=== PATIENT | female | born 1980 | race Caucasian/White ===

== ENCOUNTER 2020-03-20 04:20 | Emergency (ER) | payer BC, SELFPAY ==
[2020-03-20 04:22] VITALS: BP 119/68; PULSE 68; RESP 20; TEMP 36.4; O2SAT 99
--- NOTE | 2020-03-20 04:30 | DI.CT_ITS ---
EXAM: CT ABDOMEN PELVIS W INDICATION: pelvic pain with diarrhea and urinary frequency. COMPARISON: No exams were available for comparison TECHNIQUE: CT examination was performed without contrast administration. FINDINGS: Images obtained through the lung bases are unremarkable. Visualized portions of the liver and splee n appear intact. Visualized portions of the pancreas are unremarkable. Gallbladder and bile ducts are CT normal. Abdominal aorta is of normal diameter. No significant abdominal wall hernia. No significant abdominal or pelvic adenopathy. Adrenals appear normal bilaterally. The kidneys are normal in size and shape. There is moderate right hydronephrosis and hydroureter to the level of the distal ureter where there is an obstructing 7 millimeter in diameter stone about 3 c m above the ureterovesical junction. No left nephrolithiasis, hydronephrosis, or ureterolithiasis. Urinary bladder is nondistended. Pedorthist structures appear intact as visualized. Appendix is normal. No evidence of diverticulitis or anne wel obstruction. IMPRESSION: Obstructing 7 millimeter in diameter calculus in the distal right ureter. No other significant findi ngs. RADIATION DOSE DELIVERED: 693.17mGy.cm DLP 693.17mGy.cm Total DLP
--- NOTE | 2020-03-20 04:34 | W.ED.GENAD ---
Discharge Plan Disposition Patient Disposition: HOME Condition: Good Discharge Details Chief Complaint: Abd Prob Clinical Impression: Kidney stone, Vomiting, Dehydration, Hypomagnesemia Primary Care Provider: Cha Lovell ED Provider: Nate Lopez Discharge Instructions Instructions: Kidney Stones (ED) Additional Instructions: At this time you have likely passed your kidney stone. This is likely the cause of your symptoms. Please stay well-hydrated, use the strainer to collect the stone. You can have this analyzed by your primary care provider. Additionally your monthly/. Related symptoms may also be related to endometriosis. I recommend close follow-up with your primary care provider for further assessment of this. If you notice any worsening of your symptoms, or any new symptoms such as vomiting, diarrhea, fever, chills, shortness of breath, chest pain, numbness, weakness, or fainting , please return immediately to the emergency department for reevaluation. Please follow up with your primary care provider as soon as possible for reassessment and reevaluation. As always, it was a pleasure participating in your medical care today. Referrals: Cha Lovell [Primary Care Provider] - Medical Decision Making This is a 39-year-old female with a past medical history of asthma, who presents today for evaluation of abdominal pain/pelvic pain, cramping, urinary frequency. Patient states that her symptoms began earlier this evening and have worsened throughout the night. She has had multiple episodes of vomiting and diarrhea, and feels that she cannot keep anything down. She also has urinary frequency and mild burning. She denies any hematochezia, melena or acholic stool. She denies any recent foreign travel, antibiotic use or other sick contacts. 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 She states that she had a similar episode 6 months ago where she went to [facility] [place]. At that time she states that she had negative MRI of the abdomen, negative cystoscopy, and an otherwise unremarkable work-up in the end. She states that since then she has been having pelvic cramping on a monthly basis that is much more severe than normal and it appears to all be in conjunction with her period. She denies any other complaints at this time. No other modifying factors. Physical exam demonstrates a nontender abdomen with no reproducibility of the pain. Positive Trousseau sign for her arm with inflation of a blood pressure cuff, and dry mucous membranes. Differential includes endometriosis for chronic pain however this acute episode may be more viral related. Differential of interstitial cystitis seems less likely especially given her negative cystoscopy per patient history. Infectious etiology/urinary infection versus renal stone also on the differential. We will rehydrate, treat with Zofran and Bentyl, get a CT scan with contrast, monitor closely and reassess. 6 AM Laboratory work-up is returned, white count is 15, but in the absence of fever chills or other signs of infection I suspect this is likely secondary to a reactivity from her pain and vomiting. CT of the abdomen is negative for acute process except for evidence of an acute right-sided obstructive uropathy of a 7 x 3 mm calculus. Urinalysis is negative for any evidence of infection, renal function is excellent. Immediately upon return from CAT scan the patient had complete resolution of her pain, this is likely from passing of the stone. She is now doing well and feels much better. She did appear notably dehydrated on labs, magnesium as well, we have replenished magnesium with 1 g of mag, given her total of 1 L here in 1 L from EMS. Pain is is feeling well. Patient will be discharged home with collection cup/filter for stone. I did discuss with her how I do feel it is still important for further evaluation on an outpatient basis with her OB and PCP for potential assessment for potential endometriosis however this is not appear to be the acute cause of her symptoms at this time. Discussed red flags which to return. I have extensively reviewed the treatment plan and discharge instructions with the patient. I have addressed all patient concerns at this time. The patient was made aware of what symptoms to monitor for that would warrant a return to the emergency department. Discussed the plan with the patient, they demonstrate verbal understanding and agreement with our assessment and plan at this time. IMPRESSION: 1. Acute right-sided obstructive uropathy with a 7 mm x 3 mm calculus within the distal right ureter several cm above the ureterovesical junction. Moderate hydroureteronephrosis with mild perinephric and periureteral edema. 2. Bladder wall thickening, lack of distention versus cystitis. 3. Additional nonemergent findings as described above. Thank you for allowing us to participate in the care of your patient. Dictated and Authenticated by: Denys Merritt MD 03/20/2020 5:47 AM Eastern Time ([place] & [place]) HPI General Date/Time Provider Initiated Documentation: 03/20/20 04:31. HPI Narrative: This is a 39-year-old female with a past medical history of asthma, who presents today for evaluation of abdominal pain/pelvic pain, cramping, urinary frequency. Patient states that her symptoms began earlier this evening and have worsened throughout the night. She has had multiple episodes of vomiting and diarrhea, and feels that she cannot keep anything down. She also has urinary frequency and mild burning. She denies any hematochezia, melena or acholic stool. She denies any recent foreign travel, antibiotic use or other sick contacts. She is a [id number]-ve-daua mother. She states that she had a similar episode 6 months ago where she went to [facility] [place]. At that time she states that she had negative MRI of the abdomen, negative cystoscopy, and an otherwise unremarkable work-up in the end. She states that since then she has been having pelvic cramping on a monthly basis that is much more severe than normal and it appears to all be in conjunction with her period. She denies any other complaints at this time. No other modifying factors. Related Data Allergies Allergy/AdvReac Type Severity Reaction Status Date / Time No Known Drug Allergies Allergy Unverified 03/20/20 05:11 General Stated Complaint: Abd Prob STEFAN: 3 Review of Systems All systems reviewed & are unremarkable except as noted in HPI and below PFSH Social History Smoking/Tobacco Use Status: Never Smoking risk assessment performed?: Yes Alcohol Intake: never Drug use: Socially Substance use type: marijuana Do you feel safe at home: Yes Do you feel safe in your relationship?: Yes Exam Narrative Exam Narrative: 1.Const: Well-nourished, Well-developed, appearing stated age 2.Eyes: PERRL, no conjunctival injection, and symmetrical lids. 3.ENT: Atraumatic external nose and ears. Dry MM. Neck: Symmetric, trachea midline, No thyromegaly. 4.CVS: +S1/S2, No murmurs or gallops. Peripheral pulses 2+ and equal in all extremities. Brisk capillary refill in all extremities. 5.RESP: Unlabored respiratory effort. Clear to auscultation bilaterally. No wheezes rales or rhonchi 6.GI: Soft, Nontender/Nondistended, No hepatosplenomegaly. No guarding or rebound. No reproducible tenderness per palpation of the pelvic or abdominal regions. No significant CVA tenderness. 7.MSK: Normocephalic/Atraumatic, Extremities w/o deformity or ttp No cyanosis or clubbing, Normal movement of all extremities, however she does demonstrate, however she does demonstrate a positive Trousseau sign on blood pressure cuff inflation. 8.Skin: Warm, Dry. No rashes or lesions. 9.Neuro: supervisor logging II-XII grossly intact. Sensation grossly intact, no focal neurologic deficits. No hyperreflexia 10.Psych: (AAO) x3. Appropriate mood and affect Course Vital Signs Vital signs: Vital Signs Temperature 36.4 C L 03/20/20 04:22 Pulse 68 03/20/20 04:22 Respiratory Rate 20 03/20/20 04:22 Blood Pressure 119/68 03/20/20 04:22 Pulse Oximetry 99 03/20/20 04:22 Temperature 36.4 C L 03/20/20 04:22 Temperature Source Temporal Artery Scan 03/20/20 04:22 Pulse 68 03/20/20 04:22 Respiratory Rate 20 03/20/20 04:22 Blood Pressure 119/68 03/20/20 04:22 Pulse Oximetry 99 03/20/20 04:22 Oxygen Delivery Method Room Air 03/20/20 04:22 Oxygen Flow Rate 0 03/20/20 04:22 Pain Level 4 03/20/20 04:22
[2020-03-20 04:42] LABS: Abs Immature Grans 0.05 10^3/uL (0.0-0.06); Absolute Basophil Count 0.06 10^3/uL (0.0-0.2); Absolute Lymphocyte Count 1.96 10^3/uL (1.2-3.4); Absolute Monocyte Count 0.87 10^3/uL (0.1-0.8); Basophils % 0.4; HCT 47.9 % (36.0-46.0); Immature Grans % 0.3; Lymphocytes % 12.7; MCH 29.6 pg (27.0-33.0); MCHC 33.4 % (32.0-36.0); MCV 88.7 fL (80-95); MPV 10.1 fL (8.0-11.0); Monocytes % 5.6; Nucleated RBC 0 %; Platelet Count 238 10^3/uL (130-400); RDW 12.2 % (11.7-14.6); RDW-SD 39.8 fL; WBC 15.45 10^3/uL (4.4-10.8)
[2020-03-20 04:43] LABS: Absolute Eosinophil Count 0.15 10^3/uL (0.0-0.7); Absolute Neutrophil Count 12.36 10^3/uL (1.2-6.7)
[2020-03-20] MEDS: Normal Saline 1,000 ML 1000 ML IV (04:48)
[2020-03-20] MEDS: Ondansetron 4 MG/2 ML VIAL IVP (04:50)
[2020-03-20 04:52] LABS: Magnesium 1.7 mg/dL (1.8-2.4)
[2020-03-20 04:56] LABS: ALT 23 U/L (14-59); AST 18 U/L (15-37); Albumin 4.8 g/dL (3.4-5.0); Alkaline Phosphatase 84 U/L (46-116); Anion Gap 14.6 mmol/L (3-11); BUN 21 mg/dL (7-18); Bilirubin, Total 0.3 mg/dL (0.2-1.0); CO2 22.4 mmol/L (21.0-32.0); Calcium 9.9 mg/dL (8.5-10.1); Chloride 100 mmol/L (98-107); Glucose 152 mg/dL (74-106); Lipase 172 U/L (73-393); Potassium 3.4 mmol/L (3.5-5.1); Sodium 137 mmol/L (136-145); Total Protein 8.6 g/dL (6.4-8.2)
[2020-03-20 04:57] LABS: Bilirubin Negative (Negative); Blood Small (Negative); Clarity Sl Cloudy (Clear); Glucose Negative (Negative); Ketones 80 mg/dL (Negative); Leukocyte Esterase Negative (Negative); Nitrite Negative (Negative); Specific Gravity 1.025 (1.005-1.025); Urobilinogen 0.2 EU/dL (Up TO 0.2); pH 8.5 (5-8)
[2020-03-20 05:02] LABS: Bacteria Few HPF (Negative); C & S Indicated? No; Casts Negative LPF (Negative); Crystals Negative HPF (Negative); Epithelial Cells Moderate HPF (Negative); Mucus Negative (Negative); WBC Negative HPF (0-5)
[2020-03-20] MEDS: Dicyclomine 20 MG TAB PO (05:03)
[2020-03-20] MEDS: Omnipaque 350 MG/ML 100 ML BTL IJ (05:08)
[2020-03-20] MEDS: Normal Saline - Diluent 50 ML VIAL IV (05:09)
[2020-03-20] MEDS: Metoclopramide 10 MG/2 ML VIAL IVP (05:22)
[2020-03-20] MEDS: MAGNESIUM SULFATE 1 GM/100 ML BAG IVPB (05:23)
--- NOTE | 2020-03-20 05:48 | DI.VRAD_ITS ---
PROCEDURE INFORMATION: Exam: CT Abdomen And Pelvis With Contrast Exam date and time: 03/20/2020 5:04 AM Age: 39 years old Clinical indication: Other: Pelvic pain with diarrhea and urinary fequency TECHNIQUE: Imaging protocol: Computed tomography of the abdomen and pelvis with intravenous contrast. Radiation optimization: All CT scans at this facility use at least one of these dose optimization techniques: automated exposure control; mA and/or kV adjustment per patient size (includes targeted exams where dose is matched to clinical indication); or iterative reconstruction. Contrast material: OMNI 350; Contrast volume: 100 ml; Contrast route: INTRAVENOUS (IV); COMPARISON: No relevant prior studies available. FINDINGS: Mediastinal space: Patulous distal esophagus. Liver: Hepatomegaly. No mass. Gallbladder and bile ducts: Distended without gallstones, wall thickening or other findings of acute cholecystitis. Biliary tract nondilated. Pancreas: No enlargement. No mass. No ductal dilatation. Spleen: Splenomegaly. Adrenal glands: No mass. No enlargement. No hemorrhage. Kidneys and ureters: Acute right-sided obstructive uropathy with a 7 mm x 3 mm calculus within the distal right ureter several cm above the ureterovesical junction. Moderate hydroureteronephrosis with mild perinephric and periureteral edema. No additional genitourinary tract calcifications. No left-sided obstructive uropathy. Stomach and bowel: No significant diverticulosis or diverticulitis. No colitis. Small bowel normal caliber without wall thickening. No mechanical obstruction. No pneumatosis. Stomach decompressed but grossly unremarkable. Appendix: Not confidently identified. No right lower quadrant inflammation. Intraperitoneal space: Unremarkable. No free air. No significant fluid collection. Vasculature: Aorta normal caliber without aneurysm, dissection or disruption. Lymph nodes: No significant lymphadenopathy demonstrated. Urinary bladder: Bladder wall thickening, lack of distention versus cystitis. Reproductive: Unremarkable uterus. Ovarian follicular changes. No dominant adnexal mass. Bones/joints: Mild degenerative changes noted throughout the spine. Grade 1 spondylolisthesis L5 on S1 secondary to degenerative facet disease. Soft tissues: Small uncomplicated fat containing umbilical hernia. IMPRESSION: 1. Acute right-sided obstructive uropathy with a 7 mm x 3 mm calculus within the distal right ureter several cm above the ureterovesical junction. Moderate hydroureteronephrosis with mild perinephric and periureteral edema. 2. Bladder wall thickening, lack of distention versus cystitis. 3. Additional nonemergent findings as described above. Dictated and Authenticated by: Denys Merritt MD. Ordering:LLOYD Sullivan MD
== END 2020-03-20 07:15 | disposition home or self-care (01) ==
PROVIDERS: Emergency Provider Student in an Organized Health Care Education/Training Program; PCP Nurse Practitioner Family
DX: E83.42 Hypomagnesemia (principal); N13.2 Hydronephrosis with renal and ureteral calculous obstruction; N13.4 Hydroureter; E86.0 Dehydration; R11.2 Nausea with vomiting, unspecified
CPT/HCPCS: 36415; 80053; 81025; 83690; 96361; 96365; 96375; 99285; 74177; 81003; 81015; 83735; 85025; J2405; J2765; J3475; J3490